=== PATIENT | female | born 1950 | race Caucasian/White ===

== ENCOUNTER → 2016-04-21 | Outpatient (CLI) | payer OTHER | LOC: BMCIMAGING 09:55 | PROVIDERS: ATTEND Internal Medicine | DX: M17.0 Bilateral primary osteoarthritis of knee (principal) ==

== ENCOUNTER → 2016-10-29 | Outpatient (CLI) | payer OTHER | LOC: BMCIMAGING 07:43 | PROVIDERS: ATTEND Internal Medicine | DX: Z12.31 Encounter for screening mammogram for malignant neoplasm of breast (principal) | CPT/HCPCS: G0202 ==

== ENCOUNTER → 2017-05-23 | Outpatient (CLI) | payer OTHER | LOC: FIMAGING 07:41 | PROVIDERS: ATTEND Orthopaedic Surgery | DX: Z01.818 Encounter for other preprocedural examination (principal); M17.12 Unilateral primary osteoarthritis, left knee ==

== ENCOUNTER 2017-06-08 10:15 | Observation (INO) | payer OTHER ==
--- NOTE | 2017-06-08 08:09 | PDHPUP ---
History & Physical Update H&P update statement: This history and physical update is based on an assessment of the patient which was completed after admission or registration (within 24 hours), but prior to the surgery/procedure. H&P update: H&P reviewed & patient examined, no change in patient's condition since H&P completed
[~2017-06-08 10:15] MED LIST: BUPI/epINEPH/KETOROLAC IU ONE; ROPIVACAINE 0.2% 80 MG, EPINEPHrine 0.2 MG, KETOROLAC TROMETHAMINE 30 MG in SYRINGE 0 ML IU ONE; TRANEXAMIC ACID 3,000 MG in NS (SYRINGE) 50 ML IRR ONE; TRANEXAMIC ACID 3,000 MG/50 ML BAG IRR ONE
[2017-06-08] MEDS ORDERED: ceFAZolin 2 GM/SWFI 2 GM/20 ML SYR IVP ONE (12:46)
[2017-06-08] MEDS ORDERED: ACETAMINOPHEN 325 MG TAB PO ONE (12:46)
[2017-06-08] MEDS ORDERED: FAMOTIDINE 20 MG TAB PO ONE (12:46)
[2017-06-08] MEDS ORDERED: DEXAMETHASONE 4 MG/ML VIAL IVP ONE (12:46)
[2017-06-08] MEDS ORDERED: MIDAZOLAM 2 MG/2 ML VIAL IVP ONE (12:54)
[2017-06-08] MEDS ORDERED: LR 1,000 ML IV ONE (12:54)
[2017-06-08] MEDS ORDERED: LIDOCAINE 1% 2 ML INJ ID PRN (12:54)
--- NOTE | 2017-06-08 12:55 | PDANEPAE ---
ANE History of Present Illness here for L TKA ANE Past Medical History - Cardiovascular History Hx Hypertension: Yes Hx Arrhythmias: No Hx Chest Pain: No Hx Coronary Artery / Peripheral Vascular Disease: No Hx CHF / Valvular Disease: No Hx Palpitations: No - Pulmonary History Hx Asthma/Reactive Airway Disease: Yes Hx Recent Upper Respiratory Infection: No Hx Oxygen in Use at Home: No Hx Sleep Apnea: No Sleep Apnea Screening Result - Last Documented: Negative Pulmonary History Comment: exercise and enviromental allergens triggers asthma - Neurologic History Hx Cerebrovascular Accident: No Hx Seizures: No Hx Dementia: No - Endocrine History Hx Diabetes: No - Renal History Hx Renal Disorders: No - Liver History Hx Hepatic Disorders: No - Neurological & Psychiatric Hx Hx Neurological and Psychiatric Disorders: No - Cancer History Hx Cancer: No - Congenital Disorder History Hx Congenital Disorders: No - GI History Hx Gastrointestinal Disorders: No - Other Health History Other Health History: menapausal - Chronic Pain History Chronic Pain: Yes (right knee) - Surgical History Prior Surgeries: none ANE Review of Systems Review of systems is: negative Review of Systems: - Exercise capacity Exercise capacity: >=4 METS METS (RN): 4 METS ANE Patient History - Allergies Allergies/Adverse Reactions: Penicillins Allergy (Severe, Verified 06/08/17 13:01) swelling at injection site Sulfa (Sulfonamide Antibiotics) Allergy (Severe, Verified 05/18/17 10:45) Swelling/neck,face,throat codeine Adverse Reaction (Verified 06/08/17 13:09) Vomiting - Home Medications Home medications: home medication list seen and reviewed Home Medications: Acetaminophen [Tylenol ES 500 mg (*)] 500 mg PO BID PRN 05/13/17 [Last Taken ] Albuterol [Proventil Inhaler HFA (*)] 1 - 2 puffs IH DAILY PRN 05/13/17 [Last Taken 06/08/17] Atenolol [Tenormin 50 mg (*)] 50 mg PO DAILY 05/13/17 [Last Taken 06/08/17] Beclomethasone Qvar 80 [Qvar 80 Redihaler (*)] 2 inh IH DAILY 05/13/17 [Last Taken Unknown] Chlorthalidone [Chlorthalidone 25 mg (*)] 25 mg PO DAILY 05/13/17 [Last Taken ] Cholecalciferol Vit D3 [Vitamin D3 (*)] 5,000 units PO DAILY 05/13/17 [Last Taken 05/25/17] Estradiol [Vivelle-Dot 0.075MG (*)] 0.075 mg TD SuWe@0800 05/13/17 [Last Taken 05/25/17] Fluocinonide 0.05% [Lidex 0.05% Ointment] 1 idania TP DAILY PRN 05/13/17 [Last Taken 06/07/17] Fluticasone Propionate [Flovent Hfa] 2 puffs IH BID 05/13/17 [Last Taken ] Herbals/Supplements -Info Only 1 ea PO DAILY 05/13/17 [Last Taken 05/25/17] Progesterone 75mg Compounded 1 each PO HS 05/13/17 [Last Taken 05/25/17] Testosterone 5mg/Ml Cream 1 idania TP DAILY 05/13/17 [Last Taken 05/25/17] Triamcinolone 0.1% [Triamcinolone 0.1% Cream (*)] 1 idania TP DAILY PRN 05/13/17 [ Last Taken 06/07/17] - NPO status NPO Status: no food or drink >8 hours - Smoking Hx Smoking Status: Former smoker - Family Anes Hx Family Hx Anesthesia Complications: none ANE Labs/Vital Signs - Vital Signs Vital Signs: reviewed preoperatively; see RN documention for details Height: 157.48 cm Weight: 68.946 kg ANE Physical Exam - Airway Neck exam: FROM Mallampati Score: Class 1 - Pulmonary Pulmonary: no respiratory distress - Cardiovascular Cardiovascular: regular rate and rhythym - ASA Status ASA Status: II ANE Anesthesia Plan Anesthesia Plan: spinal Regional Anesthesia: adductor canal FNB
[2017-06-08] MEDS ORDERED: PROPOFOL/EMULSION 500 MG/50 ML BOTTLE IV ONE (13:58)
[2017-06-08] MEDS ORDERED: fentaNYL 100 MCG/2 ML INJ ONE (13:59)
[2017-06-08] MEDS ORDERED: ALBUTEROL 3 ML DEYVIAL IH PRN (14:23)
[2017-06-08] MEDS ORDERED: DEXAMETHASONE 4 MG/ML VIAL IVP PRN (14:23)
[2017-06-08] MEDS ORDERED: NALOXONE HCL 0.4 MG/ML INJ IVP PRN (14:23)
[2017-06-08] MEDS ORDERED: HYDROmorphONE/DILAUDID 2 MG/ML INJ IVP PRN (14:23)
[2017-06-08] MEDS ORDERED: fentaNYL 100 MCG/2 ML INJ IVP PRN (14:23)
[2017-06-08] MEDS ORDERED: PROPOFOL 200 MG/20 ML VIAL ONE (15:00)
[2017-06-08] MEDS ORDERED: POLYETHYLENE GLYCOL 3350 17 GM PKT PO PRN (15:40)
[2017-06-08] MEDS ORDERED: ONDANSETRON DISINTEGRATING 4 MG TAB PO PRN (15:40)
[2017-06-08] MEDS ORDERED: LACTULOSE 20 GM/30 ML UDCUP PO PRN (15:40)
[2017-06-08] MEDS ORDERED: BISACODYL 10 MG SUPP PR PRN (15:40)
[2017-06-08] MEDS ORDERED: PROMETHAZINE HCL 25 MG/ML INJ IVP PRN (15:40)
[2017-06-08] MEDS ORDERED: ONDANSETRON 4 MG/2 ML VIAL IVP PRN (15:40)
[2017-06-08] MEDS ORDERED: TEMAZEPAM 15 MG CAP PO PRN (15:40)
[2017-06-08] MEDS ORDERED: MAGNESIUM HYDROXIDE 30 ML UDCUP PO PRN (15:40)
[2017-06-08] MEDS ORDERED: PROMETHAZINE HCL 25 MG SUPPR PR PRN (15:40)
[2017-06-08] MEDS ORDERED: CYCLOBENZAPRINE 10 MG TAB PO PRN (15:40)
[2017-06-08] MEDS ORDERED: DIPHENOXYLATE/ATROPINE LOMOTIL 1 TAB PO PRN (15:40)
[2017-06-08] MEDS ORDERED: METOCLOPRAMIDE 10 MG/2 ML VIAL IVP PRN (15:40)
[2017-06-08] MEDS ORDERED: diphenhydrAMINE 25 MG CAP PO PRN (15:40)
[2017-06-08] MEDS ORDERED: TRIAMCINOLONE 0.1% TP PRN (15:42)
[2017-06-08] MEDS ORDERED: ALBUTEROL 60 PUFFS/8 GM MDI IH PRN (15:54)
[2017-06-08] MEDS ORDERED: LR 1,000 ML IV SCH (16:00)
[2017-06-08] MEDS ORDERED: TRIAMCINOLONE 0.1% 15 GM CRTUBE TP PRN (17:43)
[2017-06-08] MEDS: ACETAMINOPHEN 325 MG TAB PO SCH (18:27)
--- NOTE | 2017-06-08 18:38 | POSTANESTH ---
Post Anesthetic Evaluation Cardiovascular Status: Normal, Stable Respiratory Status: Normal, Stable Level of Consciousness/Mental Status: Can Participate in Eval Pain Control: Adequate, Prn Tx Ordered Nausea/Vomiting Control: Adequate, Prn Tx Ordered Complications Possibly Related to Anesthesia: None Noted
[2017-06-08] MEDS: SENNOSIDES/DOCUSATE SODIUM TAB PO SCH (21:35)
[2017-06-08] MEDS: FAMOTIDINE 20 MG TAB PO SCH (21:36)
[2017-06-08] MEDS: ceFAZolin 2 GM/SWFI 2 GM/20 ML SYR IVP SCH (21:36)
[2017-06-08] MEDS: ASPIRIN 81 MG CHEWABLE TAB PO SCH (21:36)
[2017-06-08] MEDS: FLUTICASONE HFA 110 MCG MDI IH SCH (21:48)
[2017-06-08] MEDS ORDERED: ceFAZolin 2 GM/DEXTROSE 100 ML IV SCH (22:00)
[2017-06-09] MEDS: ACETAMINOPHEN 325 MG TAB PO SCH ×2 (00:49→05:09)
[2017-06-09] MEDS: oxyCODONE IR 5 MG TAB PO PRN ×2 (05:11→10:15)
[2017-06-09] MEDS: ceFAZolin 2 GM/SWFI 2 GM/20 ML SYR IVP SCH (06:45)
[2017-06-09] MEDS: FLUTICASONE HFA 110 MCG MDI IH SCH (08:34)
[2017-06-09] MEDS ORDERED: ATENOLOL 50 MG TAB PO SCH (09:00)
[2017-06-09] MEDS ORDERED: FLUOCINONIDE 0.05% 15 GM OINTMENT TP PRN (09:00)
[2017-06-09] MEDS ORDERED: BECLOMETHASONE QVAR 80 REDIHALER 120 INH/10.6 GM MDI IH SCH (09:00)
[2017-06-09] MEDS ORDERED: CHLORTHALIDONE 25 MG TAB PO SCH (09:00)
[2017-06-09] MEDS ORDERED: BECLOMETHASONE QVAR IH SCH (09:00)
[2017-06-09 09:03] VITALS: BP 119/72
[2017-06-09] MEDS: FAMOTIDINE 20 MG TAB PO SCH (10:11)
[2017-06-09] MEDS: ASPIRIN 81 MG CHEWABLE TAB PO SCH (10:12)
[2017-06-09] MEDS: SENNOSIDES/DOCUSATE SODIUM TAB PO SCH (10:13)
--- NOTE | 2017-06-09 22:02 | SOAPPROG ---
SOAP Progress Note Assessment/Plan: Assessment: Patient is doing well s/p TKA pain is well controlled VTE ppx: recommend ASA BID for 4 weeks d/c planning: dc to home today Plan: 06/09/17 22:00 06/09/17 22:01 Subjective: [place] is doing well, denies SOB, chest pain and n/V. Objective: Vital Signs Temp Pulse Resp BP Pulse Ox 36.5 C 74 16 119/72 93 06/09/17 08:00 06/09/17 08:00 06/09/17 08:00 06/09/17 08:00 06/09/17 08:00 Laboratory Results 06/09/17 05:21 06/08/17 06/09/17 06/10/17 05:59 05:59 05:59 Intake Total 1265 850 Output Total 2390 Balance -1125 850 incision dressing is clean and dry, NVI, +pf/df ICD10 Worksheet Patient Problems: Problems Problem Status Onset Primary localized osteoarthritis of left knee Acute
--- NOTE | 2017-06-10 05:14 | GOP ---
[f rep st] OPERATIVE REPORT DATE OF OPERATION: 06/08/2017 SURGEON: Alex Chris MD COST REDUCTION ENGINEER: Jory Chris PA-C ANESTHESIA: Spinal. PREOPERATIVE DIAGNOSIS: Left knee osteoarthritis. POSTOPERATIVE DIAGNOSIS: Left knee osteoarthritis. PROCEDURE PERFORMED: Left total knee arthroplasty with computer navigation, robotic assist. FINDINGS: Severe medial and patellofemoral osteoarthritis. ESTIMATED BLOOD LOSS: 30 cc. INDICATIONS: The patient is a 66-year-old female with severe and progressive pain and deformity of the left knee unresponsive to conservative care. The risks and benefits of surgical intervention were explained in detail. DESCRIPTION OF PROCEDURE: The patient was brought to the operative room and placed on the table in the supine position. Spinal anesthesia was induced without difficulty. A pneumatic tourniquet was applied about the left proximal thigh, and the leg was prepped and draped in a sterile fashion. The leg norwood was applied. After exsanguination by elevation the tourniquet was inflated to 250 mmHg. Incision was made anterior medial from the tibial tuberosity to a point 2 cm proximal to the superior pole of the patella. Medial parapatellar arthrotomy was carried out from the superior pole of the patella and posteriorly in line with the fibers of the Type II VMO. The medial collateral ligament was elevated and the infrapatellar fat pad was resected. The patella was everted and the articular surface was excised. A 29 mm patellar button was placed. Attention was turned first to the distal aspect of the femur. After exposure of the femur, 2 half pins were placed for fixation of the femoral array. In a similar fashion, 2 pins were placed anteromedial on the tibia for fixation of the tibial array. External land marking and registration of the hip center was performed without difficulty. Internal femoral and tibial registration was carried out without difficulty and the femoral and tibial checkpoints were placed and verified for accuracy. Attention was turned to the femur. The foot print for the size 2 femoral component was cut with the saw using the wmbly robotic system and verified for accuracy against the CT based plan. In a similar fashion, the saw was used to cut the footprint for the size 3 tibial component using the JASE system and verified for accuracy against the CT based plan. The tibial articular surface was excised without difficulty. The knee was extended and the remnants of the medial and lateral meniscus were excised. The posterior capsule was injected with ropivacaine, epinephrine and Toradol. A size 3 tibial tray was positioned. Trial reduction was then carried out. There was excellent range of motion, alignment, and stability using the 3 x 9 mm polyethylene. All trials were then removed. The joint was thoroughly irrigated and carefully dried. The CSX3 implant components were implanted. The permanent 9 mm polyethylene was placed without difficulty. The tourniquet was deflated and all bleeders were coagulated. The wound was thoroughly irrigated and closed using interrupted sutures of 2-0 Vicryl for the joint capsule. The subcu was closed with 3-0 Vicryl and the skin with 4-0 Monocryl. Dermabond and Steri-Strips were applied followed by a compressive dressing. The patient was then moved from the operating room to the recovery room in good condition, having tolerated the procedure well. SURGEON: Alex Chris MD /[id number]/MODL MTDD
== END 2017-06-09 10:58 | disposition home or self-care (01) ==
LOC: F3N 11:52
PROVIDERS: ADMIT Orthopaedic Surgery; ATTEND Orthopaedic Surgery
DX: M17.12 Unilateral primary osteoarthritis, left knee (principal); J45.909 Unspecified asthma, uncomplicated; E78.5 Hyperlipidemia, unspecified; I10 Essential (primary) hypertension; E03.9 Hypothyroidism, unspecified; Z87.440 Personal history of urinary (tract) infections; Z87.891 Personal history of nicotine dependence; Z88.0 Allergy status to penicillin; Z88.2 Allergy status to sulfonamides
CPT/HCPCS: 20985; 27447; 73560; 88311; 97161; 97165; C1776; G8978; G8979; G8980; G8987; G8988; G8989; J0171; J0690; J1100; J1885; J2250; J2704; J3010

== ENCOUNTER → 2017-08-18 | Outpatient (CLI) | payer OTHER | LOC: FIMAGING 07:34 | PROVIDERS: ATTEND Orthopaedic Surgery | DX: M17.11 Unilateral primary osteoarthritis, right knee (principal); M22.11 Recurrent subluxation of patella, right knee; M22.41 Chondromalacia patellae, right knee; M25.461 Effusion, right knee ==

== ENCOUNTER → 2017-10-31 | Outpatient (CLI) | payer OTHER | LOC: BMCIMAGING 08:02 | PROVIDERS: ATTEND Internal Medicine | DX: Z12.31 Encounter for screening mammogram for malignant neoplasm of breast (principal) ==